=== PATIENT | male | born 1990 ===

== ENCOUNTER → 2017-08-21 | Emergency (ER) | payer OTHER ==
[~2017-08-21] VITALS: Ht 172.7 cm; Wt 99.8 kg
[~2017-08-21] MED LIST: AMOX-CLAV 875-1 EACH PO; IBUPROFEN600 MG PO
== END | disposition home or self-care (01) ==
LOC: ER 11:40
DX: S61.021A Laceration with foreign body of right thumb without damage to nail, initial encounter (principal); W26.0XXA Contact with knife, initial encounter; Y93.89 Activity, other specified; Y92.810 Car as the place of occurrence of the external cause; Y99.8 Other external cause status